=== PATIENT | female | born 1960 | race Caucasian/White ===

== ENCOUNTER 2023-06-08 10:46 | Emergency (ER) | payer MEDICAID ==
[~2023-06-08] VITALS: Ht 160 cm; Wt 70.0 kg
[2023-06-08 10:50] VITALS: BP 135/87; PULSE 101; TEMP 97.8; O2SAT 98
[2023-06-08] MEDS ORDERED: ketorolac trometh. 30mg/ml inj. IM ONE (15:05)
[2023-06-08] MEDS ORDERED: methylPREDNISolone sod succ 125mg/2ml vial IM ONE (15:05)
[2023-06-08 15:17] VITALS: RESP 16
[2023-06-08] MEDS ORDERED: CYCL-394 PO (15:37)
== END 2023-06-08 16:18 | disposition home or self-care (01) ==
LOC: ER 10:46
DX: S39.012A Strain of muscle, fascia and tendon of lower back, initial encounter (principal); G89.29 Other chronic pain; E78.00 Pure hypercholesterolemia, unspecified; E03.9 Hypothyroidism, unspecified; F17.200 Nicotine dependence, unspecified, uncomplicated; Z56.0 Unemployment, unspecified; Z59.00 Homelessness unspecified; X58.XXXA Exposure to other specified factors, initial encounter; Y93.89 Activity, other specified; Y92.89 Other specified places as the place of occurrence of the external cause; Y99.8 Other external cause status
CPT/HCPCS: 96372; 99284; J1885; J2930

== ENCOUNTER 2024-05-04 11:11 | Inpatient (IN) | payer MEDICAID ==
[~2024-05-04] VITALS: Ht 162.6 cm; Wt 52.0 kg
[2024-05-04] MEDS: ondansetron/PF 4mg/2ml inj IV ONE (11:55)
[2024-05-04] MEDS: fentaNYL/PF 50MCG/1 ML 2ML syringe IV ONE (11:56)
[2024-05-04] MEDS: normal saline 1000ml 1,000 ML IV ONE (11:56)
[2024-05-04 12:05] LABS: BASOPHILS % (AUTO) 0.4 % (0-1); EOSINOPHILS # (AUTO) 0.2 X10'3 (0-0.9); EOSINOPHILS % (AUTO) 1.6 % (0-6); HEMATOCRIT 38.7 % (35.0-45.0); HEMOGLOBIN 12.7 g/dl (12.0-16.0); LYMPHOCYTES # (AUTO) 1.5 X10'3 (1.1-4.8); LYMPHOCYTES % (AUTO) 15.4 % (21-51); MEAN CORPUSCULAR HEMOGLOBIN 32.9 PG (27.0-31.0); MEAN CORPUSCULAR HGB CONC 32.9 g/dL (33.0-36.5); MEAN CORPUSCULAR VOLUME 100.1 FL (78-98); MONOCYTES # (AUTO) 0.7 X10'3 (0-0.9); MONOCYTES % (AUTO) 7.2 % (2-12); NEUTROPHILS # (AUTO) 7.4 X10'3 (1.8-7.7); NEUTROPHILS % (AUTO) 75.4 % (42-75); PLATELET COUNT 386 X10'3 (140-440); RED BLOOD COUNT 3.86 X10'6 (4.20-5.60); RED CELL DISTRIBUTION WIDTH 15.3 % (11.5-14.5); WHITE BLOOD COUNT 9.8 X10'3 (4.5-11.0)
[2024-05-04 12:34] LABS: ALANINE AMINOTRANSFERASE 20 U/L (12-78); ALBUMIN 4.1 G/DL (3.4-5.0); ALBUMIN/GLOBULIN RATIO 0.9 (1.1-1.5); ALKALINE PHOSPHATASE 146 IU/L (46-116); ANION GAP 17 (8-16); ASPARTATE AMINO TRANSFERASE 19 U/L (10-37); BILIRUBIN,TOTAL 0.6 MG/DL (0.1-1.0); BLOOD UREA NITROGEN 25 MG/DL (7-18); CALCIUM 10.2 MG/DL (8.5-10.1); CHLORIDE 104 MMOL/L (99-107); CREATININE 0.61 MG/DL (0.40-0.90); GLUCOSE 77 MG/DL (70-104); POTASSIUM 3.5 MMOL/L (3.5-5.1); SODIUM 142 MMOL/L (135-145); TOTAL CARBON DIOXIDE 20.8 MMOL/L (24-32); TOTAL PROTEIN 8.8 G/DL (6.4-8.2); eCRCL 79 ML/MIN; eGFR > 90 ML/MIN
[2024-05-04 12:35] LABS: AMYLASE 49 U/L (25-115); LIPASE 35 U/L (16-77)
[2024-05-04] MEDS: nitroGLYCERIN 0.4mg SUBLingual tab SL PRN (12:43)
[2024-05-04] MEDS: pantoprazole 40 MG vial IV SCH ×2 (12:45→21:21)
[2024-05-04] MEDS: mag hydrox/Alum hydrox/simeth 30ml oral suspension PO ONE (13:07)
[2024-05-04] MEDS: HYDROmorphone 1 mg/ml syringe IV ONE (13:33)
[2024-05-04] MEDS ORDERED: potassium Cl 20 mEq SR tablet PO PRN (15:05)
[2024-05-04] MEDS ORDERED: ondansetron/PF 4mg/2ml inj IV PRN (15:05)
[2024-05-04] MEDS ORDERED: potassium Cl 40MEQ/1/2NS 520ml 520 ML IV PRN (15:05)
[2024-05-04] MEDS ORDERED: magnesium sulf-water 2g/50mL 50 ML IV PRN (15:05)
[2024-05-04] MEDS ORDERED: acetaminophen 325mg tablet PO PRN (15:05)
[2024-05-04] MEDS ORDERED: magnesium sulf-water 4G/100mL 100 ML IV PRN (15:05)
[2024-05-04] MEDS ORDERED: mag hydrox/Alum hydrox/simeth 30ml oral suspension PO PRN (15:05)
[2024-05-04] MEDS: normal saline 1000ml 1,000 ML IV SCH (15:40)
[2024-05-04 16:09] LABS: BILIRUBIN,URINE SMALL (Neg); CLARITY,URINE CLOUDY (Clear); COLOR,URINE YELLOW (Yellow); GLUCOSE, URINE NEGATIVE (Neg); KETONES,URINE >=80 mg/dl (Neg); LEUKOCYTE ESTERASE ,URINE NEGATIVE (Neg); NITRITES, URINE NEGATIVE (Neg); OCCULT BLOOD,URINE NEGATIVE (Neg); PROTEIN,URINE TRACE mg/dl (Neg)
[2024-05-04 16:10] LABS: UA COLLECTION TYPE CLN CATCH MIDSTREAM
[2024-05-04] MEDS: morphine 2 MG/ML inj. syringe IV PRN ×2 (16:11→22:07)
[2024-05-04 16:12] LABS: URINE AMPHETAMINE SCREEN NEGATIVE (Neg); URINE BARBITUATE SCREEN NEGATIVE (Neg); URINE BENZODIAZEPINES SCREEN NEGATIVE (Neg); URINE CANNABINOID SCREEN POSITIVE (Neg); URINE COCAINE SCREEN NEGATIVE (Neg); URINE METHADONE SCREEN NEGATIVE (Neg); URINE OPIATE SCREEN POSITIVE (Neg); URINE PHENCYCLIDINE SCREEN NEGATIVE (Neg)
[2024-05-04 16:15] LABS: HYALINE CASTS 0-3 /LPF (NEGATIVE); MUCUS STRANDS MANY /LPF (Neg); SQUAMOUS EPITHELIAL CELL,UR FEW /LPF (FEW)
[2024-05-04 16:35] LABS: BACTERIA,URINE FEW /HPF (Neg); WBC,URINE 0-4 /HPF (0-4)
[2024-05-04 17:00] VITALS: BP 135/69; PULSE 67; RESP 20; TEMP 97.3; O2SAT 98
[2024-05-04 17:51] VITALS: RESP 20; O2SAT 98
[2024-05-04 18:00] VITALS: BP 135/69; PULSE 67; RESP 20; TEMP 98; O2SAT 97
[2024-05-04] MEDS: K and/or MAG REPLACEMENT MC SCH (20:00)
[2024-05-04] MEDS: nicotine 14mg patch - 24hr TD SCH (21:20)
[2024-05-04] MEDS: potassium Cl 20 mEq SR tablet PO PRN (21:20)
[2024-05-04] MEDS: docusate sod 100mg capsule PO SCH (21:21)
[2024-05-04 22:00] VITALS: BP 125/68; PULSE 58; RESP 16; TEMP 98; O2SAT 99
[2024-05-05 06:00] VITALS: BP 134/83; PULSE 68; RESP 18; TEMP 97.8; O2SAT 90
[2024-05-05 06:38] LABS: BASOPHILS # (AUTO) 0.1 X10'3 (0-0.2); BASOPHILS % (AUTO) 0.6 % (0-1); EOSINOPHILS # (AUTO) 0.4 X10'3 (0-0.9); EOSINOPHILS % (AUTO) 4.4 % (0-6); HEMATOCRIT 33.3 % (35.0-45.0); HEMOGLOBIN 10.8 g/dl (12.0-16.0); LYMPHOCYTES # (AUTO) 1.6 X10'3 (1.1-4.8); LYMPHOCYTES % (AUTO) 16.8 % (21-51); MEAN CORPUSCULAR HEMOGLOBIN 32.6 PG (27.0-31.0); MEAN CORPUSCULAR HGB CONC 32.4 g/dL (33.0-36.5); MEAN CORPUSCULAR VOLUME 100.5 FL (78-98); MEAN PLATELET VOLUME 7.9 FL (7.4-10.4); MONOCYTES # (AUTO) 0.8 X10'3 (0-0.9); MONOCYTES % (AUTO) 8.3 % (2-12); NEUTROPHILS # (AUTO) 6.8 X10'3 (1.8-7.7); NEUTROPHILS % (AUTO) 69.9 % (42-75); PLATELET COUNT 321 X10'3 (140-440); RED BLOOD COUNT 3.31 X10'6 (4.20-5.60); RED CELL DISTRIBUTION WIDTH 15.2 % (11.5-14.5); WHITE BLOOD COUNT 9.7 X10'3 (4.5-11.0)
[2024-05-05 06:52] LABS: ALANINE AMINOTRANSFERASE 16 U/L (12-78); ALBUMIN 3.5 G/DL (3.4-5.0); ALBUMIN/GLOBULIN RATIO 0.9 (1.1-1.5); ALKALINE PHOSPHATASE 119 IU/L (46-116); ANION GAP 15 (8-16); ASPARTATE AMINO TRANSFERASE 15 U/L (10-37); BILIRUBIN,TOTAL 0.5 MG/DL (0.1-1.0); BLOOD UREA NITROGEN 26 MG/DL (7-18); BUN/CREATININE RATIO 47.3 (10.0-20.0); CALCIUM 9.2 MG/DL (8.5-10.1); CHLORIDE 106 MMOL/L (99-107); CREATININE 0.55 MG/DL (0.40-0.90); GLUCOSE 59 MG/DL (70-104); MAGNESIUM 1.8 MG/DL (1.5-2.4); PHOSPHORUS 3.4 MG/DL (2.3-4.5); POTASSIUM 3.8 MMOL/L (3.5-5.1); SODIUM 141 MMOL/L (135-145); TOTAL CARBON DIOXIDE 20.1 MMOL/L (24-32); TOTAL PROTEIN 7.5 G/DL (6.4-8.2); eCRCL 88 ML/MIN; eGFR > 90 ML/MIN
[2024-05-05 08:00] VITALS: RESP 16; O2SAT 100
[2024-05-05] MEDS: enoxaparin 40mg/0.4ml syringe SUBCUT SCH (08:33)
[2024-05-05 10:00] VITALS: BP 111/60; PULSE 61; RESP 16; TEMP 97.8; O2SAT 100
[2024-05-05] MEDS: HYDROmorphone inj. 0.5 MG/0.5 ML DISP.SYRIN IV PRN (11:23)
[2024-05-05 18:00] VITALS: BP 132/71; PULSE 68; RESP 16; TEMP 97.4; O2SAT 96
[2024-05-05 19:33] VITALS: RESP 15; O2SAT 96
[2024-05-05 22:00] VITALS: BP 120/64; PULSE 68; RESP 12; TEMP 97.7; O2SAT 97
[2024-05-06] VITALS (8 sets, daily range): BP systolic 116–157; BP diastolic 62–79; PULSE 57–77; RESP 13–18; TEMP 97.5–97.6; O2SAT 94–98
[2024-05-06 06:44] LABS: BASOPHILS % (AUTO) 0.6 % (0-1); EOSINOPHILS # (AUTO) 0.4 X10'3 (0-0.9); EOSINOPHILS % (AUTO) 6.4 % (0-6); HEMATOCRIT 30.5 % (35.0-45.0); HEMOGLOBIN 10.1 g/dl (12.0-16.0); LYMPHOCYTES # (AUTO) 1.4 X10'3 (1.1-4.8); LYMPHOCYTES % (AUTO) 20.7 % (21-51); MEAN CORPUSCULAR HEMOGLOBIN 33.1 PG (27.0-31.0); MEAN CORPUSCULAR HGB CONC 33.1 g/dL (33.0-36.5); MEAN CORPUSCULAR VOLUME 100.3 FL (78-98); MEAN PLATELET VOLUME 7.8 FL (7.4-10.4); MONOCYTES # (AUTO) 0.7 X10'3 (0-0.9); MONOCYTES % (AUTO) 10.6 % (2-12); NEUTROPHILS # (AUTO) 4.2 X10'3 (1.8-7.7); NEUTROPHILS % (AUTO) 61.7 % (42-75); PLATELET COUNT 279 X10'3 (140-440); RED BLOOD COUNT 3.04 X10'6 (4.20-5.60); WHITE BLOOD COUNT 6.8 X10'3 (4.5-11.0)
[2024-05-06 06:55] LABS: ALANINE AMINOTRANSFERASE 14 U/L (12-78); ALBUMIN/GLOBULIN RATIO 0.8 (1.1-1.5); ALKALINE PHOSPHATASE 102 IU/L (46-116); ANION GAP 9 (8-16); ASPARTATE AMINO TRANSFERASE 14 U/L (10-37); BILIRUBIN,TOTAL 0.5 MG/DL (0.1-1.0); BLOOD UREA NITROGEN 12 MG/DL (7-18); CALCIUM 8.7 MG/DL (8.5-10.1); CHLORIDE 108 MMOL/L (99-107); GLUCOSE 87 MG/DL (70-104); MAGNESIUM 1.5 MG/DL (1.5-2.4); PHOSPHORUS 3.3 MG/DL (2.3-4.5); POTASSIUM 3.5 MMOL/L (3.5-5.1); SODIUM 140 MMOL/L (135-145); TOTAL CARBON DIOXIDE 23.2 MMOL/L (24-32); TOTAL PROTEIN 6.7 G/DL (6.4-8.2); eCRCL 97 ML/MIN; eGFR > 90 ML/MIN
[2024-05-06] MEDS ORDERED: MIDAZolam 1 MG/ML 5ML VIAL ONE (07:12)
[2024-05-06] MEDS ORDERED: fentaNYL/PF 50MCG/1 ML 2ML syringe ONE (07:12)
[2024-05-06] MEDS ORDERED: diphenhydrAMINE 50 mg/ml inj ONE (07:12)
[2024-05-06] MEDS ORDERED: LIDOcaine 2% Viscous 15ml cup ONE (07:12)
[2024-05-06] MEDS ORDERED: simethicone 40mg/0.6ml oral drops 30ml ONE (09:00)
[2024-05-06] MEDS ORDERED: PANT-47 PO (13:56)
[2024-05-06] MEDS ORDERED: PANT40TA54 PO (16:59)
== END 2024-05-06 16:49 | disposition home or self-care (01) | DRG 241 ==
LOC: ER 11:12 → ED HOLD 15:22 → ORTHO 4S 16:50
PROVIDERS: ADMIT Internal Medicine; ATTEND Internal Medicine
PROC: 0DB38ZX Excision of Lower Esophagus, Via Natural or Artificial Opening Endoscopic, Diagnostic (ICD-10-PCS; principal; 2024-05-06)
PROC: 0DB78ZX Excision of Stomach, Pylorus, Via Natural or Artificial Opening Endoscopic, Diagnostic (ICD-10-PCS; 2024-05-06)
DX: K29.70 Gastritis, unspecified, without bleeding (principal); K22.2 Esophageal obstruction; K21.00 Gastro-esophageal reflux disease with esophagitis, without bleeding; E03.9 Hypothyroidism, unspecified; F17.210 Nicotine dependence, cigarettes, uncomplicated; E78.00 Pure hypercholesterolemia, unspecified; K29.80 Duodenitis without bleeding; F32.A Depression, unspecified; E07.9 Disorder of thyroid, unspecified; S39.012A Strain of muscle, fascia and tendon of lower back, initial encounter; X58.XXXA Exposure to other specified factors, initial encounter; F41.9 Anxiety disorder, unspecified; M54.9 Dorsalgia, unspecified; G89.29 Other chronic pain; Z90.710 Acquired absence of both cervix and uterus; Z59.00 Homelessness unspecified; Y93.89 Activity, other specified; Y92.89 Other specified places as the place of occurrence of the external cause; Y99.8 Other external cause status
CPT/HCPCS: 36415; 43239; 74018; 80053; 80305; 81001; 82150; 83690; 83735; 84100; 84484; 85025; 93005; 99152; 99285; A4620; A6258; G0378; J1170; J1200; J1650; J2250; J2270; J2405; J2470; J3010; J7030

== ENCOUNTER 2024-06-12 14:49 | Emergency (ER) | payer MEDICAID, SELFPAY ==
[~2024-06-12] VITALS: Ht 162.6 cm; Wt 54.0 kg
[~2024-06-12 14:49] MED LIST: PANT40TA54 PO
[2024-06-12 15:00] VITALS: BP 121/77; PULSE 87; O2SAT 97
[2024-06-12] MEDS ORDERED: ketorolac trometh 15mg/ml vial 15 MG/ML ML IM ONE (15:40)
[2024-06-12] MEDS: HYDROcodone/acetaminophen 10/325mg tab PO ONE (16:05)
[2024-06-12 16:06] VITALS: RESP 16
[2024-06-12] MEDS: ketorolac trometh 30MG/ML vial 30 MG/ML VIAL IM ONE (16:06)
[2024-06-12] MEDS ORDERED: NAPR-996 PO (17:34)
[2024-06-12] MEDS ORDERED: CYCL-1 PO (17:34)
[2024-06-12 17:37] VITALS: TEMP 99.3
== END 2024-06-12 17:38 | disposition home or self-care (01) ==
LOC: ER 14:50
DX: S39.012A Strain of muscle, fascia and tendon of lower back, initial encounter (principal); M54.42 Lumbago with sciatica, left side; E78.00 Pure hypercholesterolemia, unspecified; E03.9 Hypothyroidism, unspecified; Z79.899 Other long term (current) drug therapy; X58.XXXA Exposure to other specified factors, initial encounter; Y93.89 Activity, other specified; Y92.89 Other specified places as the place of occurrence of the external cause; Y99.8 Other external cause status
CPT/HCPCS: 96372; 99283; J1885